=== PATIENT | female | born 1995 | race African-American/Black ===

== ENCOUNTER 2019-01-12 20:07 | Emergency (ER) | payer SELFPAY ==
[~2019-01-12] VITALS: Ht 162.6 cm; Wt 47.0 kg
[~2019-01-12 20:07] MED LIST: PREN-88 PO
[2019-01-13 00:20] VITALS: BP 113/63
== END 2019-01-13 00:41 | disposition home or self-care (01) ==
LOC: ER 20:07
DX: R05 Cough (principal); R50.9 Fever, unspecified; R07.89 Other chest pain
CPT/HCPCS: 71045; 93005; 99283